=== PATIENT | male | born 1990 | race African-American/Black ===

== ENCOUNTER 2018-07-04 20:43 | Emergency (ER) | payer SELFPAY ==
[2018-07-04] MEDS ORDERED: Ibuprofen 800 MG TAB ONE (21:36)
== END 2018-07-04 22:18 | disposition home or self-care (01) ==
LOC: ERS 20:43
DX: R19.7 Diarrhea, unspecified (principal)
CPT/HCPCS: 96372; J0500

== ENCOUNTER 2022-06-20 12:26 | Inpatient (IN) | payer SELFPAY ==
[2022-06-20 14:32] LABS: SARS-CoV-2 NAA Rapid Test Not Detected (NotDetected)
[2022-06-20] MEDS ORDERED: Dexamethasone 4 mg/ml Vial ONE (14:37)
[2022-06-20] MEDS: D5 0.9% NS w/ 20 mEq KCl 1,000 ML IV SCH ×2 (18:18→21:15)
[2022-06-20 18:32] VITALS: BMI 30.4
[2022-06-20] MEDS: HYDROcodone/Acetaminophen 5/325 mg Tablet PO PRN (18:38)
[2022-06-20] MEDS: Clindamycin/D5W 900 MG in Premix Bag 1 BAG IVPB SCH (21:15)
[2022-06-20] MEDS: Chlorhexidine Gluconate 15 ML UDCUP SSP SCH (21:18)
[2022-06-21] MEDS: HYDROcodone/Acetaminophen 5/325 mg Tablet PO PRN ×2 (00:08→08:16)
[2022-06-21] MEDS: Clindamycin/D5W 900 MG in Premix Bag 1 BAG IVPB SCH ×3 (05:40→21:09)
[2022-06-21] MEDS: Chlorhexidine Gluconate 15 ML UDCUP SSP SCH ×4 (08:11→22:54)
[2022-06-21] MEDS ORDERED: Bacitracin Zinc Ointment 30 gm TUBE ONE (12:44)
[2022-06-21] MEDS ORDERED: EPINEPHrine 1 MG/ML AMP ONE (12:44)
[2022-06-21] MEDS ORDERED: Chlorhexidine Gluconate 15 ML UDCUP SSP ONE ×2 (12:44→16:36)
[2022-06-21] MEDS ORDERED: Lidocaine 1% (PF) 30 ML VIAL ONE (12:44)
[2022-06-21] MEDS ORDERED: Midazolam HCl 2 mg/2 ml Vial ONE (13:14)
[2022-06-21] MEDS ORDERED: Oxymetazoline HCl 0.05% (30 ML BOT) ONE (13:14)
[2022-06-21] MEDS ORDERED: GLYCOPYRROLATE/PF 0.2 MG/ML VIAL ONE (13:14)
[2022-06-21] MEDS ORDERED: fentaNYL PF 100 MCG/2 ML SYRINGE ONE ×3 (13:34→17:35)
[2022-06-21] MEDS ORDERED: Clindamycin/D5W 900 mg/50 ml Premix Bag ONE (13:59)
[2022-06-21] MEDS ORDERED: Labetalol HCl 100 MG/20 ML VIAL ONE ×2 (14:32→17:42)
[2022-06-21] MEDS ORDERED: Ondansetron PF 4 MG/2 ML Vial ONE ×2 (14:32→19:05)
[2022-06-21] MEDS ORDERED: NEOSTIGMINE 3 MG/3 ML SYR 3 MG/3 ML SYRINGE ONE (14:32)
[2022-06-21] MEDS ORDERED: Rocuronium Bromide 10 MG/ML (10ML VIAL) ONE (14:32)
[2022-06-21] MEDS ORDERED: Lidocaine 1% PF 5 ML VIAL ONE (14:32)
[2022-06-21] MEDS ORDERED: Dexamethasone 20 MG/5 ML VIAL ONE (14:32)
[2022-06-21] MEDS ORDERED: PROPOFOL 200 MG/20 ML VIAL ONE (14:32)
[2022-06-21] MEDS ORDERED: Glycopyrrolate 0.2 MG/ML 5 ML SYRINGE ONE (14:32)
[2022-06-21] MEDS ORDERED: Promethazine HCl 25 MG/ML VIAL IM PRN (17:28)
[2022-06-21] MEDS ORDERED: Ondansetron HCl/PF 4 MG/2 ML Vial IVP PRN (17:28)
[2022-06-21] MEDS ORDERED: Morphine 2 MG/ML VIAL SLOW IVP PRN (17:42)
[2022-06-21] MEDS ORDERED: HYDROmorphone 0.5 MG/0.5 ML SYRINGE ONE ×2 (17:42→18:08)
[2022-06-21] MEDS ORDERED: Ondansetron PF 4 MG/2 ML Vial IVP PRN (17:44)
[2022-06-21] MEDS ORDERED: D5 0.9% NS w/ 20 mEq KCl 1,000 ML IV SCH (17:45)
[2022-06-21] MEDS ORDERED: hydrALAZINE 20 MG/ML VIAL ONE (18:19)
[2022-06-21] MEDS ORDERED: FENTANYL 50 MCG/ML 1 ML VIAL ONE ×2 (19:05→19:42)
[2022-06-21] MEDS: Hydrocodone-Acetamin 15 ML UDCUP PO PRN (21:10)
[2022-06-21] MEDS: Dexamethasone 4 mg/ml Vial SLOW IVP SCH (21:12)
[2022-06-21] MEDS: UDCUP PO SCH (22:55)
[2022-06-21] MEDS: IBUPROFEN 100 MG/5 ML PO SCH (22:55)
[2022-06-21] MEDS: D5 0.9% NS w/ 20 mEq KCl 1,000 ML IV SCH (22:56)
[2022-06-22] MEDS: UDCUP PO SCH ×4 (00:50→18:12)
[2022-06-22] MEDS: Dexamethasone 4 mg/ml Vial SLOW IVP SCH ×4 (00:50→18:12)
[2022-06-22] MEDS: IBUPROFEN 100 MG/5 ML PO SCH ×4 (00:50→18:12)
[2022-06-22] MEDS: Clindamycin/D5W 900 MG in Premix Bag 1 BAG IVPB SCH ×3 (00:50→18:11)
[2022-06-22] MEDS: Hydrocodone-Acetamin 15 ML UDCUP PO PRN (06:27)
[2022-06-22] MEDS: D5 0.9% NS w/ 20 mEq KCl 1,000 ML IV SCH ×2 (08:33→20:50)
[2022-06-22] MEDS: Chlorhexidine Gluconate 15 ML UDCUP SSP SCH ×3 (13:59→20:50)
[2022-06-23] MEDS: Dexamethasone 4 mg/ml Vial SLOW IVP SCH (00:12)
[2022-06-23] MEDS: IBUPROFEN 100 MG/5 ML PO SCH ×4 (00:14→19:35)
[2022-06-23] MEDS: UDCUP PO SCH ×4 (00:14→19:35)
[2022-06-23] MEDS: Clindamycin/D5W 900 MG in Premix Bag 1 BAG IVPB SCH ×3 (01:54→19:35)
[2022-06-23 06:55] LABS: #Lymphocytes 1.6 thou/uL (1.20-3.40); #Monocytes 0.5 thou/uL (0.11-0.59); #Neutrophils 8.8 thou/uL (1.40-6.50); %Basophils 0.1 % (0.0-1.0); %Eosinophils 0.1 % (0.0-10.0); %Monocytes 4.5 % (0.0-10.0); %Neutrophils 80.4 % (42.0-75.0); Hemoglobin 12.2 g/dL (14.0-18.0); Mean Corpuscular HGB CONC 33.1 g/dL (32.0-36.0); Mean Corpuscular Hemoglobin 30.8 pg (27.0-31.0); Mean Corpuscular Volume 93.2 fl (78.0-98.0); Platelet Count 365 10x3/uL (130-400); RBC Distribution Width 12.9 % (11.5-14.5); Red Blood Cell (RBC) Count 3.95 mill/uL (4.70-6.10); White Blood Cell (WBC) Count 10.9 10x3/uL (4.8-10.8)
[2022-06-23 07:14] LABS: ALT (SGPT) 18 U/L (8-55); AST (SGOT) 14 U/L (5-34); Albumin 3.6 g/dL (3.5-5.0); Alkaline Phosphatase 101 U/L (40-110); Anion Gap 14 mmol/L (10-20); BUN (Urea Nitrogen) 9 mg/dL (8.9-20.6); Bilirubin, Total 0.2 mg/dL (0.2-1.2); Calc. Creatinine Clearance 178 mL/min (70-130); Calcium 8.7 mg/dL (7.8-10.44); Carbon Dioxide 19 mmol/L (22-29); Chloride 106 mmol/L (98-107); Estimated GFR 118; Globulin 3.1 g/dL (2.4-3.5); Glucose 122 mg/dL (70-105); Protein, Total 6.7 g/dL (6.0-8.3); Sodium 135 mmol/L (136-145)
[2022-06-23] MEDS: Chlorhexidine Gluconate 15 ML UDCUP SSP SCH ×3 (09:18→19:34)
[2022-06-23] MEDS: D5 0.9% NS w/ 20 mEq KCl 1,000 ML IV SCH (10:38)
[2022-06-23] MEDS ORDERED: FLU VACC QS2022-23(6MOS UP)/PF 60 MCG/0.5 ML SYRINGE IM ONE (19:00)
[2022-06-23 19:27] VITALS: BP 136/80; TEMP 97.8
== END 2022-06-23 19:35 | disposition home or self-care (01) | DRG 142 ==
LOC: SDC 12:26 → T4-B 16:58 → OBSVTOIN 06-21 16:41
PROVIDERS: ADMIT Dentist Oral and Maxillofacial Surgery; ATTEND Dentist Oral and Maxillofacial Surgery
PROC: 0NSV04Z Reposition Left Mandible with Internal Fixation Device, Open Approach (ICD-10-PCS; principal; 2022-06-21)
PROC: 0CTX0Z1 Resection of Lower Tooth, Multiple, Open Approach (ICD-10-PCS; 2022-06-21)
PROC: 0CTW0Z1 Resection of Upper Tooth, Multiple, Open Approach (ICD-10-PCS; 2022-06-21)
PROC: 02HV33Z Insertion of Infusion Device into Superior Vena Cava, Percutaneous Approach (ICD-10-PCS; 2022-06-22)
PROC: B548ZZA Ultrasonography of Superior Vena Cava, Guidance (ICD-10-PCS; 2022-06-22)
DX: S02.602A Fracture of unspecified part of body of left mandible, initial encounter for closed fracture (principal); S02.5XXA Fracture of tooth (traumatic), initial encounter for closed fracture; K04.1 Necrosis of pulp; X58.XXXA Exposure to other specified factors, initial encounter; Z20.822 Contact with and (suspected) exposure to COVID-19
CPT/HCPCS: 36415; 36416; 36569; 70486; 80053; 85025; 96374; 96376; C1713; C1751; C1788; G0378; J0171; J0360; J1100; J1170; J2001; J2250; J2272; J2405; J2704; J3010; J3480; J3490; U0002

== ENCOUNTER 2023-06-01 05:26 | Emergency (ER) | payer OTHER, SELFPAY ==
[2023-06-01] MEDS ORDERED: Ibuprofen 800 MG TAB ONE (06:17)
== END 2023-06-01 06:24 ==
LOC: ERS 05:26
DX: S60.221A Contusion of right hand, initial encounter (principal); S60.511A Abrasion of right hand, initial encounter; F17.290 Nicotine dependence, other tobacco product, uncomplicated; V89.2XXA Person injured in unspecified motor-vehicle accident, traffic, initial encounter; W22.10XA Striking against or struck by unspecified automobile airbag, initial encounter; Z55.6 Problems related to health literacy
CPT/HCPCS: 99284